=== PATIENT | female | born 1965 | race Two or more races ===

== ENCOUNTER 2021-11-07 14:51 | Inpatient (IN) | payer MEDICAID, OTHER ==
[~2021-11-07] VITALS: Ht 175.3 cm; Wt 96.5 kg
[2021-11-07 17:01] LABS: Basophils # (auto) 0.1 10 ^3/uL (0-0.2); Basophils % (auto) 0.8 % (0.0-2.0); Eosinophils # (auto) 0.2 10 ^3/uL (0-0.8); Eosinophils % (auto) 2.2 % (0.0-7.0); Hematocrit 40.5 % (36.0-46.0); Hemoglobin 14.1 g/dL (12.2-16.2); Lymphocytes # (auto) 2.3 10 ^3/uL (0.4-5.4); Lymphocytes % (auto) 29.2 % (10.0-50.0); Mean Corpuscular Hemoglobin 30.9 pg (28.0-32.0); Mean Corpuscular Hgb Conc. 34.8 g/dL (32.0-36.0); Mean Corpuscular Volume 88.9 fL (80.0-100.0); Monocytes # (auto) 0.4 10 ^3/uL (0-1.3); Monocytes % (auto) 5.1 % (0.0-12.0); Neutrophils % (auto) 62.7 % (37.0-80.0); Red Blood Cells 4.55 10^6/uL (4.0-5.20); Red Cell Distribution Width 13.5 % (11.8-14.3)
[2021-11-07 17:20] LABS: Albumin 2.9 g/dL (3.4-5.0); BUN/Creatinine Ratio 15.1; Calcium 8.7 mg/dL (8.5-10.1); Magnesium 2.4 mg/dL (1.6-2.6); Potassium 4.3 mmol/L (3.5-5.1)
[2021-11-07 17:23] LABS: Bilirubin, Total 0.3 mg/dL (0.2-1.0); Total Protein 7.4 g/dL (6.4-8.2)
[2021-11-07 19:27] LABS: Urine Bacteria FEW /hpf (None Seen); Urine Blood Negative /uL (Negative); Urine Hyaline Cast FEW /lpf (0 - 2); Urine Specific Gravity 1.025 (1.001-1.035); Urine WBC 23 /hpf (0 - 5)
[2021-11-08] VITALS (7 sets, daily range): BP systolic 135–156; BP diastolic 60–74
[2021-11-08] MEDS ORDERED: ONDANSETRON HCL 4 MG/2 ML VIAL IV PRN (02:00)
[2021-11-08] MEDS ORDERED: DEXTROSE (50%) 50ML SYRG IV PRN (02:00)
[2021-11-08] MEDS ORDERED: TEMAZEPAM 15 MG CAP PO PRN (02:00)
[2021-11-08] MEDS ORDERED: cloNIDine HCL 0.1 MG TAB PO PRN (02:00)
[2021-11-08] MEDS ORDERED: MORPHINE SULFATE INJ 2 MG/ml SYRG IV PRN (02:00)
[2021-11-08] MEDS ORDERED: ACETAMINOPHEN 325 MG TAB PO PRN (02:00)
[2021-11-08] MEDS ORDERED: NITROGLYCERIN 0.4 MG SL TAB SL PRN (02:00)
[2021-11-08] MEDS: ACCU-CHEK COMFORT CURVE STRIP VI SCH ×5 (04:08→20:29)
[2021-11-08] MEDS: InsuLIN REG 1unit/0.01ml Soln (100units/ml) SC SCH ×5 (04:13→20:31)
[2021-11-08] MEDS: cefTRIAXone 1GM/50ML D5W 50 ML IV SCH (09:00)
[2021-11-08] MEDS: PANTOPRAZOLE 40 MG TAB PO SCH (10:14)
[2021-11-08] MEDS: ENOXAPARIN SOD 40 MG/0.4 ML SYRINGE SC SCH (10:14)
[2021-11-08] MEDS: ASPirin 81 mg TAB PO SCH (10:14)
[2021-11-08] MEDS: LOSARTAN POTASSIUM 25 MG TAB PO SCH (10:15)
[2021-11-08] MEDS ORDERED: ATOR80TA PO (13:28)
[2021-11-08] MEDS ORDERED: DAPA1TAB4 PO (13:29)
[2021-11-08] MEDS ORDERED: hydrALAZINE HCL 20 MG/ML VL IV PRN (13:30)
[2021-11-08] MEDS ORDERED: SODIUM CHLORIDE 0.9% 1,000 ML IV ONE (13:30)
[2021-11-08] MEDS ORDERED: LOSA25TA2 PO (13:35)
[2021-11-08] MEDS ORDERED: LATA0.0019 LEFTEYE (13:35)
[2021-11-08] MEDS ORDERED: DORZ2SOL18 LEFTEYE (13:35)
[2021-11-08] MEDS ORDERED: BRIM0.2S2 OP (13:35)
[2021-11-08] MEDS ORDERED: CARB0.5D8 LEFTEYE (13:35)
[2021-11-08] MEDS ORDERED: ACE250T PO (13:35)
[2021-11-08] MEDS: ATORVASTATIN 20 MG TAB PO SCH (22:21)
[2021-11-09] MEDS: ACCU-CHEK COMFORT CURVE STRIP VI SCH ×6 (00:26→20:45)
[2021-11-09] MEDS: InsuLIN REG 1unit/0.01ml Soln (100units/ml) SC SCH ×6 (00:28→20:45)
[2021-11-09 05:00] VITALS: BP 103/55
[2021-11-09 06:41] LABS: Basophils # (auto) 0 10 ^3/uL (0-0.2); Basophils % (auto) 0.8 % (0.0-2.0); Eosinophils # (auto) 0.2 10 ^3/uL (0-0.8); Eosinophils % (auto) 2.4 % (0.0-7.0); Hematocrit 37.9 % (36.0-46.0); Hemoglobin 13.2 g/dL (12.2-16.2); Lymphocytes # (auto) 2.3 10 ^3/uL (0.4-5.4); Mean Corpuscular Hemoglobin 30.8 pg (28.0-32.0); Mean Corpuscular Hgb Conc. 34.9 g/dL (32.0-36.0); Mean Corpuscular Volume 88.3 fL (80.0-100.0); Monocytes # (auto) 0.4 10 ^3/uL (0-1.3); Monocytes % (auto) 6.9 % (0.0-12.0); Neutrophils # (auto) 3.3 10 ^3/uL (1.6-8.6); Neutrophils % (auto) 52.9 % (37.0-80.0); Nucleated Red Blood Cells % 0.1 %; Red Blood Cells 4.29 10^6/uL (4.0-5.20); Red Cell Distribution Width 13.7 % (11.8-14.3); White Blood Cell 6.3 10^3/uL (4.4-10.8)
[2021-11-09 06:53] LABS: Chloride 112 mmol/L (98-107); Magnesium 2.1 mg/dL (1.6-2.6); Potassium 4.2 mmol/L (3.5-5.1); Sodium 140 mmol/L (136-145)
[2021-11-09 07:00] LABS: Alanine Aminotransferase 28 U/L (13-56); Albumin 2.6 g/dL (3.4-5.0); Alkaline Phosphatase 94 U/L (45-117); Anion Gap 8 (5-15); Aspartate Aminotransferase 28 U/L (15-37); BUN/Creatinine Ratio 24.1; Bilirubin, Total 0.4 mg/dL (0.2-1.0); Blood Urea Nitrogen 27 mg/dL (7-18); Calcium 8.8 mg/dL (8.5-10.1); Carbon Dioxide 20 mmol/L (21-32); Cholesterol 226 mg/dL (< 200); GFR African American 64 mL/min; GFR Non-African American 53 mL/min; Glucose 191 mg/dL (74-106); HDL Cholesterol 36 mg/dL (40-59); Total Protein 6.6 g/dL (6.4-8.2); Triglycerides 704 mg/dL (< 150)
[2021-11-09 07:58] VITALS: BP 156/73
[2021-11-09 08:31] VITALS: BP 135/60
[2021-11-09] MEDS: cefTRIAXone 1GM/50ML D5W 50 ML IV SCH (08:41)
[2021-11-09] MEDS: ASPirin 81 mg TAB PO SCH (10:00)
[2021-11-09] MEDS: amLODIPine BESYLATE 5 MG TAB PO SCH (10:00)
[2021-11-09] MEDS: ENOXAPARIN SOD 40 MG/0.4 ML SYRINGE SC SCH (10:00)
[2021-11-09] MEDS: PANTOPRAZOLE 40 MG TAB PO SCH (10:00)
[2021-11-09] MEDS: LOSARTAN POTASSIUM 25 MG TAB PO SCH (10:00)
[2021-11-09 12:48] VITALS: BP 137/73
[2021-11-09] MEDS ORDERED: ERGOCALCIFEROL 50,000 UNIT(1.25MG) CAP PO SCH (14:00)
[2021-11-09 16:31] VITALS: BP 136/73
[2021-11-09] MEDS: INSULIN LANTUS (GLARGINE) 1 /0.01ml (100units/ml) SC SCH (21:43)
[2021-11-09] MEDS: ATORVASTATIN 20 MG TAB PO SCH (21:46)
[2021-11-09 22:00] VITALS: BP 159/66
[2021-11-10] MEDS: InsuLIN REG 1unit/0.01ml Soln (100units/ml) SC SCH ×6 (00:06→21:11)
[2021-11-10] MEDS: ACCU-CHEK COMFORT CURVE STRIP VI SCH ×6 (04:21→21:13)
[2021-11-10 05:00] VITALS: BP 140/61
[2021-11-10 07:19] LABS: Potassium 3.7 mmol/L (3.5-5.1)
[2021-11-10 07:23] LABS: BUN/Creatinine Ratio 22.1; Calcium 8.7 mg/dL (8.5-10.1)
[2021-11-10 08:00] VITALS: BP 135/60
[2021-11-10] MEDS: cefTRIAXone 1GM/50ML D5W 50 ML IV SCH (08:36)
[2021-11-10 09:00] VITALS: BP 151/72
[2021-11-10] MEDS: ASPirin 81 mg TAB PO SCH (09:01)
[2021-11-10] MEDS: LOSARTAN POTASSIUM 25 MG TAB PO SCH (09:01)
[2021-11-10] MEDS: CLOPIDOGREL BISULFATE 75 MG TAB PO SCH (09:02)
[2021-11-10] MEDS: PANTOPRAZOLE 40 MG TAB PO SCH (09:02)
[2021-11-10] MEDS: amLODIPine BESYLATE 5 MG TAB PO SCH (09:02)
[2021-11-10] MEDS: DAPAGLIFLOZIN 5 MG TAB PO SCH (09:02)
[2021-11-10] MEDS: ENOXAPARIN SOD 40 MG/0.4 ML SYRINGE SC SCH (09:03)
[2021-11-10 13:00] VITALS: BP 132/66
[2021-11-10] MEDS ORDERED: INS7030I SC (15:13)
[2021-11-10 17:21] VITALS: BP 127/59
[2021-11-10] MEDS: ATORVASTATIN 20 MG TAB PO SCH (21:11)
[2021-11-10] MEDS: INSULIN LANTUS (GLARGINE) 1 /0.01ml (100units/ml) SC SCH (21:12)
[2021-11-10 22:00] VITALS: BP 125/58
[2021-11-11] MEDS: ACCU-CHEK COMFORT CURVE STRIP VI SCH ×4 (00:21→11:14)
[2021-11-11] MEDS: InsuLIN REG 1unit/0.01ml Soln (100units/ml) SC SCH ×4 (00:21→11:16)
[2021-11-11 05:00] VITALS: BP 148/73
[2021-11-11 06:12] LABS: Potassium 3.8 mmol/L (3.5-5.1)
[2021-11-11 06:20] LABS: BUN/Creatinine Ratio 23.9; Calcium 8.6 mg/dL (8.5-10.1)
[2021-11-11 08:00] VITALS: BP 151/72
[2021-11-11] MEDS ORDERED: LACTULOSE 20Gm/30ML SOLN PO ONE ×2 (08:30→10:30)
[2021-11-11 09:00] VITALS: BP 132/77
[2021-11-11] MEDS: ASPirin 81 mg TAB PO SCH (09:21)
[2021-11-11] MEDS: cefTRIAXone 1GM/50ML D5W 50 ML IV SCH (09:21)
[2021-11-11] MEDS: LOSARTAN POTASSIUM 25 MG TAB PO SCH (09:22)
[2021-11-11] MEDS: DAPAGLIFLOZIN 5 MG TAB PO SCH (09:23)
[2021-11-11] MEDS: PANTOPRAZOLE 40 MG TAB PO SCH (09:23)
[2021-11-11] MEDS: amLODIPine BESYLATE 5 MG TAB PO SCH (09:23)
[2021-11-11] MEDS: CLOPIDOGREL BISULFATE 75 MG TAB PO SCH (09:23)
[2021-11-11] MEDS: ENOXAPARIN SOD 40 MG/0.4 ML SYRINGE SC SCH (09:24)
[2021-11-11] MEDS ORDERED: DOCUSATE SOD 100 MG CAP PO SCH (10:00)
[2021-11-11] MEDS ORDERED: ATOR80TA PO (11:41)
[2021-11-11] MEDS ORDERED: AML5T PO (11:41)
[2021-11-11] MEDS ORDERED: CLOP75TA28 PO (11:41)
[2021-11-11] MEDS ORDERED: ASPI-378 PO (11:41)
[2021-11-11] MEDS ORDERED: LEVO500T31 PO (11:41)
[2021-11-11] MEDS ORDERED: FAMO20TA10 PO (11:41)
[2021-11-11] MEDS ORDERED: DOCU-94 PO (11:41)
[2021-11-11] MEDS ORDERED: CHOL20007 PO (11:41)
[2021-11-11 11:57] VITALS: BP 132/77
[2021-11-11 13:12] VITALS: BP 133/62
== END 2021-11-11 15:51 | disposition home or self-care (01) | DRG 45 ==
LOC: EDBD 14:51 → ER 14:51 → TELE 11-08 01:49 → TELE-EAST 11-08 05:30
PROVIDERS: ADMIT Nurse Practitioner; ATTEND Internal Medicine
DX: I63.9 Cerebral infarction, unspecified (principal); N17.0 Acute kidney failure with tubular necrosis; E11.21 Type 2 diabetes mellitus with diabetic nephropathy; N39.0 Urinary tract infection, site not specified; E55.9 Vitamin D deficiency, unspecified; B96.20 Unspecified Escherichia coli [E. coli] as the cause of diseases classified elsewhere; E11.22 Type 2 diabetes mellitus with diabetic chronic kidney disease; E78.5 Hyperlipidemia, unspecified; E66.9 Obesity, unspecified; E78.1 Pure hyperglyceridemia; I16.0 Hypertensive urgency; Z20.822 Contact with and (suspected) exposure to COVID-19; M54.50 Low back pain, unspecified; R41.3 Other amnesia; H40.9 Unspecified glaucoma; H54.8 Legal blindness, as defined in USA; I12.9 Hypertensive chronic kidney disease with stage 1 through stage 4 chronic kidney disease, or unspecified chronic kidney disease; K59.00 Constipation, unspecified; N18.9 Chronic kidney disease, unspecified; Z79.02 Long term (current) use of antithrombotics/antiplatelets; Z79.82 Long term (current) use of aspirin; Z79.899 Other long term (current) drug therapy; Z80.6 Family history of leukemia; Z83.3 Family history of diabetes mellitus; Z87.442 Personal history of urinary calculi; Z68.31 Body mass index [BMI] 31.0-31.9, adult; Z79.84 Long term (current) use of oral hypoglycemic drugs
CPT/HCPCS: 36415; 70450; 70551; 74176; 80048; 80053; 80061; 81001; 82306; 82962; 83036; 83605; 83690; 83735; 84443; 84478; 84484; 85025; 87086; 87088; 87186; 93005; 93306; 93886; 96360; 96372; G0378; J0696; J1815

== ENCOUNTER 2024-04-23 11:36 | Emergency (ER) | payer MEDICAID ==
[~2024-04-23] VITALS: Ht 165.1 cm; Wt 95.7 kg
[~2024-04-23 11:36] MED LIST: ACE250T PO; ATOR80TA PO; ATRO1SOL21 LEFTEYE; BRIM0.2S2 OP; CARB0.5D8 LEFTEYE; DAPA1TAB4 PO; DOCU-94 PO; DORZ2SOL18 LEFTEYE; FENO200C25 PO; INS7030I SC; INSU100I61 SC; INSU1INJ19 SC; LATA0.008 LEFTEYE; LOSA-534 PO; METF-370 PO; METO25TA93 PO; OMEP20TA PO; PRED1SUS4 EACHEYE
[2024-04-23] MEDS: KETOROLAC TROMETH 60MG/2ML VIAL IM ONE (12:36)
[2024-04-23 15:06] LABS: Basophils # (auto) 0.1 10 ^3/uL (0-0.2); Basophils % (auto) 0.6 % (0.0-2.0); Eosinophils # (auto) 0 10 ^3/uL (0-0.8); Eosinophils % (auto) 0.3 % (0.0-7.0); Hematocrit 43.3 % (36.0-46.0); Hemoglobin 14.8 g/dL (12.2-16.2); Lymphocytes # (auto) 1.4 10 ^3/uL (0.4-5.4); Lymphocytes % (auto) 16.3 % (10.0-50.0); Mean Corpuscular Hemoglobin 31.3 pg (28.0-32.0); Monocytes # (auto) 0.4 10 ^3/uL (0-1.3); Monocytes % (auto) 4.3 % (0.0-12.0); Neutrophils # (auto) 6.9 10 ^3/uL (1.6-8.6); Neutrophils % (auto) 78.5 % (37.0-80.0); Nucleated Red Blood Cells % 0.1 %; Platelet Count (auto) 323 10^3/uL (140-450); Red Blood Cells 4.71 10^6/uL (4.0-5.20); Red Cell Distribution Width 13.8 % (11.8-14.3); White Blood Cell 8.8 10^3/uL (4.4-10.8)
[2024-04-23 15:27] LABS: Chloride 105 mmol/L (98-107); Potassium 5.1 mmol/L (3.5-5.1); Sodium 136 mmol/L (136-145)
[2024-04-23 15:28] LABS: Anion Gap 6 (5-15); Calcium 9.8 mg/dL (8.7-10.4); Carbon Dioxide 25 mmol/L (20-31)
[2024-04-23 15:33] LABS: BUN/Creatinine Ratio 9.3 (10.0-20.0); Blood Urea Nitrogen 16 mg/dL (9-23); Glucose 392 mg/dL (74-106)
[2024-04-23] MEDS: KETOROLAC TROMETH 30 MG/ML 1ML VIAL IM ONE (16:09)
[2024-04-23] MEDS: InsuLIN REG 1unit/0.01ml Soln (100units/ml) SC ONE (16:22)
[2024-04-23] MEDS ORDERED: IBUP-1453 PO (17:48)
[2024-04-23 18:10] VITALS: BP 148/82; PULSE 75; RESP 18; TEMP 98.4; O2SAT 99
== END 2024-04-23 18:11 | disposition home or self-care (01) ==
LOC: ER 11:36
DX: S42.101A Fracture of unspecified part of scapula, right shoulder, initial encounter for closed fracture (principal); S22.31XA Fracture of one rib, right side, initial encounter for closed fracture; E11.9 Type 2 diabetes mellitus without complications; E78.5 Hyperlipidemia, unspecified; I10 Essential (primary) hypertension; Z79.4 Long term (current) use of insulin; Z79.84 Long term (current) use of oral hypoglycemic drugs; Z79.899 Other long term (current) drug therapy; Z87.891 Personal history of nicotine dependence; Z86.73 Personal history of transient ischemic attack (TIA), and cerebral infarction without residual deficits; W06.XXXA Fall from bed, initial encounter; Y93.89 Activity, other specified; Y92.89 Other specified places as the place of occurrence of the external cause; Y99.8 Other external cause status
CPT/HCPCS: 36415; 70450; 71045; 71101; 73030; 80048; 82962; 85025; 96372; 99285; J1815; J1885